=== PATIENT | female | born 1955 | race African-American/Black ===

== ENCOUNTER 2023-06-06 10:00 | Inpatient (IN) | payer OTHER ==
[2023-06-06] MEDS ORDERED: LABETALOL HCL 5 MG/1 ML (100MG/20 ML VIAL) IVPUSH ONE ×2 (10:36→16:06)
[2023-06-06] MEDS ORDERED: LABETALOL HCL 5 MG/1 ML (100MG/20 ML VIAL) ONE (11:06)
[2023-06-06] MEDS ORDERED: niCARdipine HCL 25 MG/10 ML AMPUL IVPB ONE (11:12)
[2023-06-06 11:15] LABS: INR 0.99 (0.83-1.09); PROTHROMBIN TIME (PATIENT) 11.5 SEC (9.7-13.0)
[2023-06-06 11:18] LABS: ACTIVATED PTT 35.8 SECONDS (25.2-36.5)
[2023-06-06] MEDS: NICARDIPINE 25 MG in DEXTROSE 5%-WATER - 240 ML IVPB SCH ×3 (11:19→15:19)
[2023-06-06 11:22] LABS: BASO % 0.9 % (0-2.0); EOS % 0.1 % (0-4.5); HEMATOCRIT 42.2 % (32.4-45.2); HEMOGLOBIN 14.1 GM/dL (10.7-15.3); MCH 27.5 pg (25.7-33.7); MCHC 33.5 g/dl (32.0-36.0); MEAN CELL VOLUME 82.2 fl (80-96); MEAN PLT VOLUME 8.9 fl (7.5-11.1); MONO % 3.5 % (3.8-10.2); NEUT % 73.5 % (42.8-82.8); PLATELET COUNT 403 10^3/uL (134-434); RBC 5.14 M/mm3 (3.60-5.2); WHITE BLOOD COUNT 7.9 K/mm3 (4.0-10.0)
[2023-06-06 11:44] LABS: CHLORIDE 105 mmol/L (98-107); POTASSIUM 4.3 mmol/L (3.5-5.1); SODIUM 138 mmol/L (136-145)
[2023-06-06 11:47] LABS: CALCIUM 9.5 mg/dL (8.5-10.1)
[2023-06-06 11:48] LABS: ALBUMIN 3.7 g/dl (3.4-5.0); ANION GAP 10 mmol/L (4-13); BLOOD UREA NITROGEN 16.1 mg/dL (7-18); CO2 24 mmol/L (21-32); GLUCOSE,RANDOM 121 mg/dL (74-106)
[2023-06-06 11:50] LABS: SGPT/ALT 19 U/L (13-61)
[2023-06-06 11:51] LABS: CHOLESTEROL 274 mg/dL (50-200); SGOT/AST 16 U/L (15-37)
[2023-06-06 11:52] LABS: BILIRUBIN,TOTAL 0.3 mg/dL (0.2-1); LDL CHOLESTEROL (ONLY SJRH) 200 mg/dL (5-100); TOT PROT 8.2 g/dl (6.4-8.2)
[2023-06-06 11:53] LABS: ALK PHOS 121 U/L (45-117)
[2023-06-06 11:54] LABS: HDL CHOLESTEROL 70 mg/dL (40-60)
[2023-06-06] MEDS ORDERED: LABETALOL HCL 100 MG TABLET (FP) PO ONE (14:45)
[2023-06-06] MEDS: ACETAMINOPHEN 1000 MG/100 ML BAG IVPB PRN (17:03)
[2023-06-06 19:37] VITALS: BMI 29.1
[2023-06-06] MEDS: MUPIROCIN 2% TOPICAL OINTMENT FOR DECOLONIZATION NS SCH (21:25)
[2023-06-06] MEDS ORDERED: CHLORHEXIDINE GLUCONATE 4% CLEANSER FOR DECOLONIZATION TP SCH (22:00)
[2023-06-07 07:30] LABS: BASO % 1.2 % (0-2.0); EOS % 1.2 % (0-4.5); HEMATOCRIT 38.7 % (32.4-45.2); HEMOGLOBIN 13.2 GM/dL (10.7-15.3); LYMPH % 28.3 % (8-40); MEAN CELL VOLUME 82.4 fl (80-96); MEAN PLT VOLUME 8.8 fl (7.5-11.1); MONO % 6.6 % (3.8-10.2); NEUT % 62.7 % (42.8-82.8); PLATELET COUNT 342 10^3/uL (134-434); RDW 15.6 % (11.6-15.6); WHITE BLOOD COUNT 7.9 K/mm3 (4.0-10.0)
[2023-06-07 07:50] LABS: POTASSIUM 3.9 mmol/L (3.5-5.1)
[2023-06-07 08:16] LABS: CALCIUM 9.1 mg/dL (8.5-10.1)
[2023-06-07 08:17] LABS: ALBUMIN 3.4 g/dl (3.4-5.0); MAGNESIUM 2.2 mg/dL (1.8-2.4)
[2023-06-07 08:20] LABS: CREATININE 0.8 mg/dL (0.55-1.3); PHOSPHOROUS 3.5 mg/dL (2.5-4.9)
[2023-06-07 08:21] LABS: BILIRUBIN,TOTAL 0.7 mg/dL (0.2-1); TOT PROT 7.2 g/dl (6.4-8.2)
[2023-06-07] MEDS: MUPIROCIN 2% TOPICAL OINTMENT FOR DECOLONIZATION NS SCH (09:15)
[2023-06-07] MEDS: ACETAMINOPHEN 1000 MG/100 ML BAG IVPB PRN (09:24)
[2023-06-07] MEDS: NICARDIPINE 25 MG in DEXTROSE 5%-WATER - 240 ML IVPB SCH (11:24)
[2023-06-07] MEDS ORDERED: NIFEdipine E.R. 30 MG TABLET PO SCH (11:45)
[2023-06-07] MEDS ORDERED: NIFEdipine E.R. 30 MG TABLET PO ONE (14:30)
[2023-06-07] MEDS: ATORVASTATIN CA 40 MG TABLET (FP) PO SCH (21:49)
[2023-06-08 07:23] LABS: BASO % 0.9 % (0-2.0); EOS % 2.9 % (0-4.5); HEMATOCRIT 39.4 % (32.4-45.2); HEMOGLOBIN 13.1 GM/dL (10.7-15.3); LYMPH % 38.4 % (8-40); MCH 27.2 pg (25.7-33.7); MCHC 33.1 g/dl (32.0-36.0); MEAN CELL VOLUME 82.2 fl (80-96); MEAN PLT VOLUME 8.8 fl (7.5-11.1); MONO % 5.9 % (3.8-10.2); NEUT % 51.9 % (42.8-82.8); PLATELET COUNT 337 10^3/uL (134-434); RDW 15.5 % (11.6-15.6)
[2023-06-08 07:43] LABS: POTASSIUM 4.1 mmol/L (3.5-5.1)
[2023-06-08 07:48] LABS: CALCIUM 8.9 mg/dL (8.5-10.1)
[2023-06-08 07:49] LABS: ALBUMIN 3.2 g/dl (3.4-5.0); BLOOD UREA NITROGEN 17.8 mg/dL (7-18); MAGNESIUM 2.3 mg/dL (1.8-2.4)
[2023-06-08 07:52] LABS: CREATININE 0.8 mg/dL (0.55-1.3)
[2023-06-08 07:53] LABS: BILIRUBIN,TOTAL 0.6 mg/dL (0.2-1)
[2023-06-08 07:54] LABS: TOT PROT 6.9 g/dl (6.4-8.2)
[2023-06-08] MEDS: NIFEdipine E.R 60 MG TABLET PO SCH (09:21)
[2023-06-08] MEDS ORDERED: HYDROCHLOROTHIAZIDE 12.5 MG CAPSULE (FP) PO SCH (10:00)
[2023-06-08] MEDS ORDERED: NIFEdipine E.R. 30 MG TABLET PO ONE (12:15)
[2023-06-08] MEDS: ATORVASTATIN CA 40 MG TABLET (FP) PO SCH (21:11)
[2023-06-09 07:26] LABS: HEMATOCRIT 43.5 % (32.4-45.2); HEMOGLOBIN 14.3 GM/dL (10.7-15.3); MCH 27.2 pg (25.7-33.7); MCHC 32.8 g/dl (32.0-36.0); MEAN CELL VOLUME 83.1 fl (80-96); MEAN PLT VOLUME 8.8 fl (7.5-11.1); PLATELET COUNT 376 10^3/uL (134-434); RBC 5.24 M/mm3 (3.60-5.2); RDW 15.5 % (11.6-15.6); WHITE BLOOD COUNT 8.7 K/mm3 (4.0-10.0)
[2023-06-09 07:46] LABS: POTASSIUM 4.5 mmol/L (3.5-5.1)
[2023-06-09 07:55] LABS: ALBUMIN 3.4 g/dl (3.4-5.0); CALCIUM 8.9 mg/dL (8.5-10.1)
[2023-06-09 07:56] LABS: BLOOD UREA NITROGEN 18.5 mg/dL (7-18)
[2023-06-09 07:58] LABS: PHOSPHOROUS 3.6 mg/dL (2.5-4.9)
[2023-06-09 07:59] LABS: CREATININE 0.8 mg/dL (0.55-1.3)
[2023-06-09 08:00] LABS: BILIRUBIN,TOTAL 0.5 mg/dL (0.2-1); TOT PROT 7.5 g/dl (6.4-8.2)
[2023-06-09] MEDS: NIFEdipine E.R 60 MG TABLET PO SCH (09:22)
[2023-06-09] MEDS ORDERED: NIFEdipine E.R. 30 MG TABLET PO ONE (12:13)
[2023-06-09] MEDS ORDERED: LABETALOL HCL 200 MG TABLET (FP) PO SCH (15:14)
[2023-06-09] MEDS: METOPROLOL TARTRATE 25 MG TABLET (FP) PO SCH ×2 (16:07→21:28)
[2023-06-09] MEDS ORDERED: ATORVASTATIN CA 80 MG TABLET (FP) PO ONE ×2 (17:49→20:00)
[2023-06-09] MEDS: LISINOPRIL 10 MG TABLET PO SCH (18:41)
[2023-06-09] MEDS ORDERED: NIFEdipine E.R. 30 MG TABLET PO SCH (22:00)
[2023-06-10 04:30] VITALS: RESP 18
[2023-06-10] MEDS: METOPROLOL TARTRATE 25 MG TABLET (FP) PO SCH (06:09)
[2023-06-10 06:12] VITALS: TEMP 98.1
[2023-06-10 08:12] LABS: HEMATOCRIT 41.9 % (32.4-45.2); HEMOGLOBIN 13.8 GM/dL (10.7-15.3); MCH 27.2 pg (25.7-33.7); MCHC 32.8 g/dl (32.0-36.0); MEAN CELL VOLUME 82.9 fl (80-96); MEAN PLT VOLUME 8.7 fl (7.5-11.1); PLATELET COUNT 360 10^3/uL (134-434); RBC 5.05 M/mm3 (3.60-5.2); RDW 15.6 % (11.6-15.6); WHITE BLOOD COUNT 7.1 K/mm3 (4.0-10.0)
[2023-06-10 08:31] LABS: POTASSIUM 4.4 mmol/L (3.5-5.1)
[2023-06-10 08:38] LABS: ALBUMIN 3.2 g/dl (3.4-5.0); BLOOD UREA NITROGEN 21.6 mg/dL (7-18); CALCIUM 8.8 mg/dL (8.5-10.1); MAGNESIUM 2.5 mg/dL (1.8-2.4)
[2023-06-10 08:39] LABS: PHOSPHOROUS 4.2 mg/dL (2.5-4.9)
[2023-06-10 08:40] LABS: BILIRUBIN,TOTAL 0.5 mg/dL (0.2-1)
[2023-06-10 08:41] LABS: CREATININE 0.9 mg/dL (0.55-1.3); TOT PROT 7.2 g/dl (6.4-8.2)
[2023-06-10] MEDS: LISINOPRIL 10 MG TABLET PO SCH (09:19)
[2023-06-10] MEDS ORDERED: METOPROLOL TARTRATE 50 MG TABLET (FP) PO SCH ×2 (09:36→09:38)
[2023-06-10] MEDS ORDERED: NIFEdipine E.R. 90 MG TABLET PO SCH ×2 (10:00)
[2023-06-10] MEDS ORDERED: NIFEdipine E.R 60 MG TABLET PO SCH ×2 (10:00)
[2023-06-10] MEDS ORDERED: NIFEdipine E.R. 30 MG TABLET PO SCH (10:00)
[2023-06-10 14:30] VITALS: BP 150/86; PULSE 78
[2023-06-10] MEDS ORDERED: ATORVASTATIN CA 80 MG TABLET (FP) PO SCH (22:00)
== END 2023-06-10 20:06 | disposition home or self-care (01) | DRG 65 ==
LOC: JER 10:00 → JERBED 12:01 → JICU 12:46 → J2W 06-08 01:56
PROVIDERS: ADMIT Internal Medicine Pulmonary Disease; ATTEND Internal Medicine
DX: I61.8 Other nontraumatic intracerebral hemorrhage (principal); I16.1 Hypertensive emergency; I24.89 Other forms of acute ischemic heart disease; I47.20 Ventricular tachycardia, unspecified; I69.351 Hemiplegia and hemiparesis following cerebral infarction affecting right dominant side; R29.709 NIHSS score 9; E78.5 Hyperlipidemia, unspecified; R26.81 Unsteadiness on feet
CPT/HCPCS: 36415; 70450-TC; 70553-TC; 71045-TC-FY; 80053; 80061; 82550; 82962; 83036; 83735; 84100; 84443; 84484; 85025; 85027; 85610; 85730; 86850; 86900; 86901; 87635; 93005; 93010; 93306-TC; 97116-GP; 97162-GP; 99291